=== PATIENT | male | born 1950 | race Caucasian/White ===

== ENCOUNTER 2019-02-12 20:25 | Emergency (ER) | payer MEDICARE, MEDICAID, SELFPAY ==
[2019-02-12 20:22] VITALS: BP 92/58; PULSE 87; RESP 18; TEMP 36; O2SAT 93
--- NOTE | 2019-02-12 20:32 | DI.CT_ITS ---
SYMPTOMS/DIAGNOSIS: CHEST/ABD PAIN, HYPOTENSION, ? DISSECTION, FALL, HEADACHE CT BRAIN: Noncontrast examination was performed. Comparison is 10/31/15. Age appropriate cerebral atrophy and small vessel ischemic disease is present. No acute intracranial hemorrhage, midline shift or mass effect is identified. The calvarium is intact. The visualized paranasal sinuses are clear. The mastoid air cells are well pneumatized. IMPRESSION: No acute intracranial process. CTA CHEST, ABDOMEN AND PELVIS: CT angiography was performed with multi slice acquisition and multi planar and 3D reconstruction. CT SCAN OF THE ABDOMEN AND PELVIS: There are no priors for comparison. The liver is normal in size. No evidence of a hepatic mass or laceration is seen. The portal, superior mesenteric and splenic veins are patent. There are stones seen within the gallbladder. No biliary ductal dilatation is seen. The pancreas and spleen are unremarkable. There is nodularity of the adrenal glands likely benign and reflecting adenomas. The kidneys show normal and symmetric enhancement. There are bilateral renal cysts. No solid renal mass, calculus or obstruction is identified. The urinary bladder is intact. The prostate gland appears mildly enlarged with calcifications. The abdominal aorta shows minimal atherosclerosis. It is normal in caliber. No aneurysm or dissection is seen. The celiac axis, superior and inferior mesenteric arteries are unremarkable without evidence of occlusion or significant stenosis. The renal arteries are unremarkable without evidence of occlusion or significant stenosis. The iliac arteries are unremarkable without evidence of dissection, occlusion or significant stenosis. No significant abdominal or pelvic adenopathy, ascites or pneumoperitoneum is seen. Note is made of a small fat containing umbilical hernia. The bowel shows no evidence of obstruction or inflammation. No evidence of an acute appendicitis is present. There is moderate distention of the rectum with stool. Multi-level degenerative changes are seen in the spine. No acute fracture or dislocation is seen. There is L 5 spondylolysis and grade II spondylolisthesis of L 5 on S 1. IMPRESSION: 1. No evidence of abdominal or pelvic arterial injury. No evidence of abdominal aortic dissection. 2. Incidental findings in the abdomen and pelvis. No acute abdominal process. CT SCAN OF THE CHEST: The visualized thyroid gland is unremarkable. The thoracic aorta shows no evidence of dissection. There is mild atherosclerosis present. The heart size is within normal limits. No significant pericardial effusion is seen. The central pulmonary arteries show no evidence of embolism. No pleural effusion or pneumothorax is identified. No significant thoracic adenopathy is present. There are small bullae seen in the lungs. Dependent atelectatic changes are seen in the lung bases. No focal consolidating infiltrate is seen. The tracheobronchial tree is unremarkable. There is an area of nodularity in the right middle lobe measuring 0.7 cm. Degenerative changes are seen in the spine. No acute osseous abnormality is identified. There is a small hiatal hernia present. IMPRESSION: 1. No acute pulmonary process. 2. Small 0.7 cm noncalcified area of nodularity in the right middle lobe. Follow up as clinically appropriate. Please correlate with the patient's smoking history if any. A follow up chest x-ray may be considered in 6-12 months for re- evaluation.
--- NOTE | 2019-02-12 20:40 | ED.GENADUL_ITS ---
Discharge Plan Disposition Patient Disposition: HOME Condition: Stable Discharge Details Chief Complaint: GenMedical Clinical Impression: Nausea & vomiting, Abdominal pain, Fall Primary Care Provider: Estefanía Patrick ED Provider: Zion Raya Home Meds and New Rx's Prescriptions: New ondansetron 4 mg tablet,disintegrating 4 mg PO TID PRN (Reason: nausea and vomiting) 5 Days Qty: 30 RF: 0 No Action A-Tripla 1 tab PO DAILY RF: 0 aspirin 81 MG tablet,delayed release (DR/EC) 81 mg PO DAILY Qty: 100 RF: 0 metoprolol succinate 50 mg Cap,Sprinkle,Er 24hr Dose Pack 50 mg PO HS RF: 0 lisinopril 2.5 MG tablet 5 mg PO QAM RF: 0 Discharge Instructions Instructions: Acute Nausea and Vomiting (ED) Additional Instructions: drink fluids to stay hydrated follow up with your primary care provider next week if symptoms continue if you feel you are becoming more ill, have difficulty breathing or severe pain return to the emergency department Medical Decision Making 69 yo male with HIV on HAART and has had undetectbale levels per pt for years, htn, nonischemic cardiomyopathy, comes in with chief complaint of nausea, fatigue that started around 2pm. He states he was feeling well when suddenly around 2pm today he became very sweaty and weak and lightheaded and fell. He was too weak to get up so called ems. He denies chest pain, does have some abdominal discomfort per pt but states it is more of a nausea feeling, denies vomit. He denies recent travel or surgeries. He does have some mild epigastric pain on exam without guarding. He is noted to be hypotensive here, will tx with IVF and given his fall and weakness will obtain CT head to eval for possible sdh and also given his hypotension and lightheaded feeling along with diaphoresis will obtain CTA chest/abd/pelvis to eval for dissection labs show mild leukocytosis, otherwise unremarkable and imaging all negative. He is feeling much better after antiemetics and fluids and is tolerating PO. Did spike a low grade temp here so suspect likely gastroenteritis. Will send home with antiemetics and stressed return precautions Differential Diagnosis dissection, anemia, arrythmia, sdh, pna Medical Records Medical records reviewed: Yes I reviewed the patient's medical records. Imaging Data Radiologic Study: Attestation: I personally reviewed and interpreted this imaging study as follows: Imaging: CT Scan Radiologist's impression: IMPRESSION: No acute intracranial finding. Senescent changes as discussed Radiologic Study #2: Radiologist's impression: IMPRESSION: 1. No pulmonary embolism. No thoracic aortic dissection. No acute findings. 2. Small hiatal hernia. IMPRESSION: 1. No abdominal aortic dissection. 2. Moderate degenerative disc changes at L5-S1 with grade 2 anterolisthesis secondary to bilateral spondylolysis. 3. Cholelithiasis. No CT evidence of acute cholecystitis. No biliary dilation. 4. Bilateral renal cysts. 5. Prostatomegaly. Correlate with physical exam. Lab Data Lab results reviewed: Yes I reviewed the patient's lab results. ECG Data Attestation: I personally reviewed and interpreted this ECG (s) as follows: Prior ECG tracings: available for review Interpretation: sinus rhythm, rate of 84, qtc 435, no acute st t wave ischemic changes HPI General Mode of arrival: EMS . Date/Time Provider Initiated Documentation: 02/12/19 20:26 . Limitations to Documentation: no limitations . Information obtained by: patient . History of Present Illness 69 year old M presents to the emergency department with the chief complaint of nausea, described as moderate, Patient started experiencing this hour(s) (6) and it has been constant. No relieving factors improve symptom(s), No exacerbating factors reported . Patient notes weakness. Patient did receive the following treatments prior to arrival, other (zofran with ems which improved symptoms) Related Data Home Medications Medication Instructions Recorded Confirmed A-Tripla 1 tab PO DAILY 11/03/13 02/12/19 aspirin 81 mg PO DAILY #100 tabec 11/02/15 02/12/19 lisinopril 5 mg PO QAM 02/12/19 02/12/19 metoprolol succinate 50 mg PO HS 02/12/19 02/12/19 ondansetron 4 mg PO TID PRN 5 Days #30 tab 02/12/19 Previous Rx's Medication Instructions Recorded aspirin 81 mg PO DAILY #100 tabec 11/02/15 ondansetron 4 mg PO TID PRN 5 Days #30 tab 02/12/19 Allergies Allergy/AdvReac Type Severity Reaction Status Date / Time iodine Allergy Mild Skin Rash Unverified 02/12/19 20:50 Review of Systems Review of Systems All systems reviewed & are unremarkable except as noted in HPI and below Constitutional Denies fever(s) and Denies weakness ENT Denies change in voice Cardiovascular Denies chest pain Respiratory Denies cough Gastrointestinal Denies abdominal pain, Denies nausea and Denies vomiting Genitourinary Denies dysuria Musculoskeletal Denies joint swelling Integumentary/Breasts Denies rash Neurologic Denies weakness Psychiatric Denies depression [facility] Social History Smoking/Tobacco Use Status: Former Tobacco Use Alcohol Intake: never Drug use: Never Do you feel safe at home: Yes Do you feel safe in your relationship?: Yes Exam Const General: no acute distress Orientation: alert HENMT Head: normal to inspection Ears: external ears normal General nose exam: external nose normal Mouth: moist mucous membranes Eyes General: appearance normal, both eyes and all related structures Neck Neck: normal visual inspection Resp Effort & Inspection: normal respiratory effort and able to speak in complete sentences Cardio Rate: regular rate Skin General skin exam: no rashes or lesions noted Neuro General: alert and oriented x3 Extrem General: normal to inspection Psych Mental Status: mental status grossly normal
[2019-02-12] MEDS: Ondansetron 4 MG/2 ML VIAL (20:43)
[2019-02-12] MEDS: Normal Saline 1,000 ML 1000 ML IV (20:43)
[2019-02-12 20:46] VITALS: RESP 19
[2019-02-12 20:46] LABS: Abs Immature Grans 0.02 k/cumm (0.0-0.09); Absolute Basophil Count 0.01 k/cumm (0.0-0.2); Absolute Eosinophil Count 0.03 k/cumm (0.0-0.7); Absolute Monocyte Count 0.59 k/cumm (0.11-0.7); Absolute Neutrophil Count 12.31 k/cumm (1.2-6.7); Basophils % 0.1; Eosinophils % 0.2; HCT 50.7 % (40.0-50.0); HGB 17.3 g/dL (13.5-17.5); Immature Grans % 0.1; Lymphocytes % 5.3; Mean Corp. HGB Concentration 34.1 g/dL (32.0-36.0); Mean Corpuscular Hemoglobin 31.7 pg (27.0-33.0); Mean Corpuscular Volume 92.9 fL (80-95); Mean Platelet Volume 9.8 fL (8.0-11.0); Monocytes % 4.3; Platelet Count 212 x1000/uL (130-400); RBC 5.46 m/cumm (4.50-6.00); RBC Distribution Width 13.3 % (11.8-14.1); White Blood Cell Count 13.68 k/cumm (4.4-10.8)
[2019-02-12 20:49] LABS: Absolute Lymphocyte Count 0.73 k/cumm (1.2-3.4)
[2019-02-12 20:57] LABS: Lipase 188 U/L (73-393)
[2019-02-12 21:00] LABS: INR 1.1 (0.9-1.1); PTT Activated 21.7 sec (21.0-31.4); Prothrombin Time 11.4 sec (9.3-11.0)
[2019-02-12 21:07] LABS: ALT 37 U/L (12-78); AST 30 U/L (15-37); Albumin 3.9 g/dL (3.4-5.0); Alkaline Phosphatase 130 U/L (46-116); Anion Gap 11.4 mmol/L (3-11); BUN 20 mg/dL (7-18); Bilirubin, Total 0.7 mg/dL (0.2-1.0); CO2 26.6 mmol/L (21.0-32.0); CREATININE 1.18 mg/dL (0.70-1.30); Calcium 8.9 mg/dL (8.5-10.1); Chloride 102 mmol/L (98-107); Glucose 161 mg/dL (70-100); Magnesium 1.8 mg/dL (1.8-2.4); NT-proBNP 117 pg/mL; Potassium 3.6 mmol/L (3.5-5.1); Sodium 140 mmol/L (136-145); Total Protein 7.5 g/dL (6.4-8.2); Troponin I < 0.02 ng/mL (0.00-0.06)
[2019-02-12] MEDS: Omnipaque 350 MG/ML 100 ML BTL IJ (21:37)
--- NOTE | 2019-02-12 21:49 | DI.VRAD_ITS ---
EXAM: CT Head Without Contrast EXAM DATE/TIME: 02/12/2019 8:34 PM CLINICAL HISTORY: 69 years old, male; Injury or trauma; Patient HX: Fall, headache TECHNIQUE: Imaging protocol: Axial computed tomography images of the head/brain without contrast. Coronal and sagittal reformatted images were created and reviewed. COMPARISON: CT HEAD WITHOUT CONTRAST 10/31/2015 2:17 AM FINDINGS: Brain: There is mild age related parenchymal atrophy with prominence of the cortical sulci. Periventricular and deep white matter hypodensities are consistent with sequela of chronic microvascular ischemic disease. Luna-white matter differentiation is preserved. No acute intracranial hemorrhage. Midline shift: None. Ventricles: Mild ex vacuo dilation of the ventricles, likely secondary to age related volume loss. Bones/joints: Unremarkable. No acute fracture. Sinuses: Paranasal sinuses are well aerated without air fluid level. Mastoid air cells: No mastoid effusion. Orbits: Unremarkable. Soft tissues: No focal soft tissue abnormality. IMPRESSION: No acute intracranial finding. Senescent changes as discussed. Dictated and Authenticated by: Emmett Pedersen MD. Ordering:DIANE Donovan MD
[2019-02-12 22:21] VITALS: BP 121/77; PULSE 88; RESP 18; TEMP 38.3; O2SAT 92
--- NOTE | 2019-02-12 22:34 | DI.VRAD_ITS ---
EXAM: CT Angiography Chest With Contrast EXAM DATE/TIME: 02/12/2019 8:34 PM CLINICAL HISTORY: 69 years old, male; Chest pain; Type not specified; Abdominal pain; Generalized; Patient HX: Chest/abd pain, hypotension; Additional info: ? Dissection TECHNIQUE: Imaging protocol: Axial computed tomographic angiography images of the chest with intravenous contrast using CT angiography protocol. 3D rendering: MIP reconstructed images were created and reviewed. COMPARISON: CR CHEST 2 VIEWS PA,LAT 11/12/2016 1:32 PM FINDINGS: Pulmonary arteries: Pulmonary artery opacification is adequate. No pulmonary embolism. Aorta: No thoracic aortic aneurysm or dissection. Very mild atherosclerotic calcifications of the aortic arch. Thyroid: No mass. Lungs: Linear opacities in the lung bases consistent with mild basilar atalectasis. Also noted are mild biapical bulla. No pulmonary consolidation or mass. Groundglass opacity with associated linear opacities within the medial right lower lobe is attributed to mild scarring from underlying degenerative changes of the thoracic spine. Pleural space: No pneumothorax. No pleural effusion. Heart: No cardiomegaly. No pericardial effusion. Mediastinum: There is small hiatal hernia. Upper abdomen: No acute finding. Lymph nodes: Unremarkable. No pathologically enlarged lymph nodes. Bones/joints: No acute fracture or dislocation. Mild multilevel degenerative changes of the thoracic spine with slightly more prominent focal right anterolateral bridging marginal osteophytes at T7-T10. Soft tissues: No focal abnormality. IMPRESSION: 1. No pulmonary embolism. No thoracic aortic dissection. No acute findings. 2. Small hiatal hernia. EXAM: CT Angiography Abdomen and Pelvis With Contrast EXAM DATE/TIME: 02/12/2019 8:34 PM CLINICAL HISTORY: 69 years old, male; Chest pain; Type not specified; Abdominal pain; Generalized; Patient HX: Chest/abd pain, hypotension; Additional info: ? Dissection TECHNIQUE: Imaging protocol: Axial computed tomographic angiography images of the abdomen and pelvis with intravenous contrast material, including non-contrast images if performed. 3D rendering: MIP reconstructed images were created and reviewed. COMPARISON: CR CHEST 2 VIEWS PA,LAT 11/12/2016 1:32 PM FINDINGS: VASCULATURE: Aorta: There are mild scattered atherosclerotic calcifications of the abdominal aorta and its major branches, no abdominal aortic aneurysm. No abdominal aortic dissection. Celiac trunk and mesenteric arteries: No occlusion or significant stenosis. Renal arteries: No occlusion or significant stenosis. Right iliac arteries: No occlusion or significant stenosis. Left iliac arteries: No occlusion or significant stenosis. ABDOMEN: Liver: No mass. Gallbladder and bile ducts: There are several subcentimeter hyperattenuating foci within the dependent gallbladder compatible with cholelithiasis. No focal gallbladder wall thickening or pericholecystic fluid. No biliary dilation. Pancreas: Unremarkable. No mass. No ductal dilation. Spleen: Unremarkable. No splenomegaly. Adrenals: Unremarkable. No mass. Kidneys and ureters: There are few bilateral renal hypodensities measuring up to 2.5 cm in diameter within the right lower pole and 1.7 cm in diameter within the left upper pole. These hypodensities demonstrate fluid attenuation consistent with cysts. No hydronephrosis. Ureters are normal in course and caliber. Stomach and bowel: There is mild fecal distention of the rectum. Mild diverticulosis is present in the distal colon. No focal mural thickening to suggest acute diverticulitis. No focal mural thickening of the bowel. No evidence of bowel obstruction. Appendix: Not definitively visualized, no secondary findings of acute appendicitis. PELVIS: Bladder: Unremarkable. No mass. Reproductive: Prostate gland is enlarged measuring up to 5.1 cm transverse by 3.9 cm AP by 4.8 cm craniocaudad. ABDOMEN and PELVIS: Intraperitoneal space: No pneumoperitoneum. No significant free fluid. Bones/joints: Moderate degenerative disc disease at the lumbosacral junction with grade 2 anterolisthesis of L5 on S1, secondary to bilateral L5 pars interarticularis defects. Also noted are moderate degenerative disc changes at L2-L3. Other less severe scattered degenerative changes in lumbar spine are present. No acute fracture or dislocation. Soft tissues: Trace/small fat containing umbilical hernia. Trace/mild fat projects within the inguinal canals. Lymph nodes: Unremarkable. No enlarged lymph nodes. IMPRESSION: 1. No abdominal aortic dissection. 2. Moderate degenerative disc changes at L5-S1 with grade 2 anterolisthesis secondary to bilateral spondylolysis. 3. Cholelithiasis. No CT evidence of acute cholecystitis. No biliary dilation. 4. Bilateral renal cysts. 5. Prostatomegaly. Correlate with physical exam. Dictated and Authenticated by: Emmett Pedersen MD. Ordering:DIANE Donovan MD
[2019-02-12] MEDS: Ondansetron O.D.T. 4 MG TABEF PO (22:54)
== END 2019-02-12 23:01 | disposition home or self-care (01) ==
PROVIDERS: Emergency Provider Emergency Medicine; PCP Naturopath
DX: R11.0 Nausea (principal); R10.13 Epigastric pain; D72.829 Elevated white blood cell count, unspecified; R53.1 Weakness; W01.0XXA Fall on same level from slipping, tripping and stumbling without subsequent striking against object, initial encounter; I42.9 Cardiomyopathy, unspecified; I10 Essential (primary) hypertension; B20 Human immunodeficiency virus [HIV] disease
CPT/HCPCS: 36415; 71275; 74177; 80053; 83690; 93005; 96361; 96374; 99285; 70450; 83735; 83880; 84484; 85025; 85610; 85730; 93010; J2405; J3490